=== PATIENT | male | born 1945 | race Caucasian/White ===

== ENCOUNTER → 2016-07-14 | Day surgery (SDC) | payer MEDICARE, BC ==
[~2016-07-14] VITALS: Ht 177.8 cm; Wt 79.3 kg
[~2016-07-14] MED LIST: ASPIRIN EC81 MG PO; COLACE100 MG PO; CPAP INH; DILAUDID 2MG(HYD2 MG PO; FISH OIL 1,0001 EAC3 PO; MIRALAX17 GM PO; NORVASC5 MG PO; PERCOCET 5-3251 EACH PO; PROVENTIL OR V6.7 GM INH; TENORMIN25 MG PO; TYLENOL EXTRA500 MG PO; XARELTO10 MG PO
--- NOTE | ~2016-07-14 | OR ---
PATIENT'S NAME: POLO CARRANZA [facility] AGE: 70 Y [address] ROOM: [place] [address] [address]: [facility] [place] ADMIT DATE: 07/14/2016 OR/Procedure Report DISCHARGE DATE: FAMILY PHYSICIAN: MIKE ZUNIGA MD ATTENDING PHYSICIAN: ROSAURA CURRAN SURGEON: Rosaura Curran MD SHELL FISHERMAN: None. DATE OF PROCEDURE: 07/14/2016 PRE-PROCEDURE DIAGNOSIS: Left knee stiffness after left total knee arthroplasty, 8 weeks ago. POSTOPERATIVE DIAGNOSIS: Left knee stiffness after left total knee arthroplasty, 8 weeks ago. PROCEDURE: Left total knee manipulation, under anesthesia. FLUIDS: See anesthesia report. ESTIMATED BLOOD LOSS: None. TOURNIQUET: None. ANESTHESIA: Propofol sedation. SPECIMEN: None. COMPLICATIONS: None. DISPOSITION: Stable in [facility]. INDICATIONS: Mr. Carranza is a pleasant 70-year-old gentleman, who underwent a left knee manipulation after 8 weeks, status post left total knee arthroplasty for the residual left knee stiffness. Informed consent was obtained and the patient elected to proceed with surgery. The risks, benefits, and alternatives to pursuing a procedure were discussed in detail. I marked the left knee indicating a correct site of manipulation. PROCEDURE REPORT IN DETAIL: The patient brought to the [facility]. A time-out was performed and on a propofol anesthesia was administered. Once the patient was adequately anesthetized, I turned my attention the left knee. Pre manipulation range of motion of the knee the was approximately 5 to 115 degrees. The surgical incision was well healed. The collaterals were stable. I then manipulated the knee via fully extending if the system pressing down on the thigh muscle and pushing up on the heel. I achieved full PATIENT'S NAME: POLO CARRANZA [facility] AGE: 70 Y [address] ROOM: [place] [address] LOCATION: [facility] [place] ADMIT DATE: 07/14/2016 OR/Procedure Report DISCHARGE DATE: FAMILY PHYSICIAN: MIKE ZUNIGA MD ATTENDING PHYSICIAN: ROSAURA CURRAN extension of the knee. After achieving full extension, I brought the knee into flexion and I hyperflexed the knee. I did hear audible breaking of scar tissue. We achieved at least 135 degrees of knee flexion. Compared to the contralateral limb, the knee flexion was near equal. No complications were noted. The patient was then awakened in the hospital bed. There were no complications. IMPRESSION: The patient is status post left total knee arthroplasty and manipulation under anesthesia. PLAN: The patient will be weightbearing as tolerated in the left lower extremity. We will try him on some Percocet for pain control. He will be discharged home from the [facility] discharge criteria. He will follow up with me in the office in 1 week. He will be instructed to continue physical therapy and work on aggressive range of motion going forward. A post manipulation x- ray in the PACU and the [facility] will be obtained prior to discharge. MD ALEXI CLARK/simona /[id number] d: 07/14/16 0859 t: 07/14/16 1155, OPERATIVE SUMMARY
--- NOTE | ~2016-07-14 | OR ---
PATIENT'S NAME: POLO STOREY [facility] AGE: 70 Y [address] ROOM: [place] [address] LOCATION: [facility] [place] ADMIT DATE: 07/14/2016 OR/Procedure Report DISCHARGE DATE: FAMILY PHYSICIAN: Otto Watson MD ATTENDING PHYSICIAN: Venkat Bocanegra SURGEON: Venkat Bocanegra MD MULTIFOLD OPERATOR: DATE OF PROCEDURE: 07/14/2016 ADDENDUM: Please add this addendum to the operative note from 07/14/2016. 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 VENKAT BOCANEGRA MD RCD/modl /[id number] d: 07/28/16 1011 t: 07/28/16 1031, OPERATIVE SUMMARY
== END | disposition disaster alternative care site (69) ==
LOC: GPOC 07-13 13:00 → GSDC 05:56
PROC: 0SSDXZZ Reposition Left Knee Joint, External Approach (ICD-10-PCS; principal; 2016-07-14)
DX: M25.662 Stiffness of left knee, not elsewhere classified (principal); M19.90 Unspecified osteoarthritis, unspecified site; I10 Essential (primary) hypertension; J45.909 Unspecified asthma, uncomplicated; G47.33 Obstructive sleep apnea (adult) (pediatric); Z96.652 Presence of left artificial knee joint
CPT/HCPCS: J7030